=== PATIENT | male | born 1990 | race Caucasian/White ===

== ENCOUNTER 2020-12-25 15:03 | Emergency (ER) | payer OTHER ==
[~2020-12-25] VITALS: Ht 185.4 cm; Wt 102.0 kg
[2020-12-25] MEDS ORDERED: TRILEPTAL150 M1 PO (16:18)
[2020-12-25] MEDS ORDERED: LEXAPRO20 MG PO (16:18)
[2020-12-25 16:57] VITALS: BP 139/77
== END 2020-12-25 17:06 | disposition home or self-care (01) | DRG 605 ==
LOC: ED 15:03
PROC: 0HQFXZZ Repair Right Hand Skin, External Approach (ICD-10-PCS; principal; 2020-12-25)
DX: S61.411A Laceration without foreign body of right hand, initial encounter (principal); F32.9 Major depressive disorder, single episode, unspecified; F17.210 Nicotine dependence, cigarettes, uncomplicated; W27.8XXA Contact with other nonpowered hand tool, initial encounter; Y93.89 Activity, other specified; Y92.009 Unspecified place in unspecified non-institutional (private) residence as the place of occurrence of the external cause